=== PATIENT | female | born 1965 | race Asian ===

== ENCOUNTER 2018-03-21 09:39 | Outpatient (CLI) | payer BC ==
--- NOTE | 2018-03-21 10:10 | RAD ---
LEFT SHOULDER THREE VIEWS: History: Pain in left shoulder. FINDINGS: No evidence of fracture or dislocation. AC joint is normally aligned. No significant degenerative grant nge apparent. IMPRESSION: No acute finding. POS: [facility]
== END 2018-03-21 09:40 | disposition home or self-care (01) ==
LOC: RAD 09:39
PROVIDERS: ATTEND Nurse Practitioner Family
DX: M25.512 Pain in left shoulder (principal)

== ENCOUNTER 2019-06-21 08:24 | Outpatient (CLI) | payer BC ==
--- NOTE | 2019-06-21 08:58 | ULT ---
GALLBLADDER ULTRASOUND: HISTORY: Right upper quadrant abdominal pain FINDINGS: The liver demonstrates homogeneous echotexture without focal mass or intrahepatic biliary ductal dila tation. No gallstones, gallbladder wall thickening or pericholecystic fluid are seen. The right kidney and pancreas are normal. The common duct [id number] in diameter. No free fluid is seen in the Contreras's pouch. IMPRESSION: Normal exam.
== END 2019-06-21 08:25 | disposition home or self-care (01) ==
LOC: BICULT 08:24
PROVIDERS: ATTEND Internal Medicine Gastroenterology
DX: R10.9 Unspecified abdominal pain (principal)
CPT/HCPCS: 76705

== ENCOUNTER 2023-02-05 10:11 | Outpatient (CLI) | payer BC, OTHER | END 2023-02-05 10:12 | disposition home or self-care (01) | LOC: BICMRI 10:11 | PROVIDERS: ATTEND Internal Medicine | DX: M54.18 Radiculopathy, sacral and sacrococcygeal region (principal); M53.3 Sacrococcygeal disorders, not elsewhere classified | CPT/HCPCS: 72195 ==